=== PATIENT | female | born 2000 | race American Indian/Alaskan Native ===

== ENCOUNTER 2021-04-06 12:59 | Emergency (ER) | payer SELFPAY ==
--- NOTE | 2021-04-06 13:32 | Emergency Department Report ---
ED General Adult HPI - General Chief complaint: Pain General Stated complaint: SERIES OF PAIN Time Seen by Provider: 04/06/21 13:11 Source: patient Mode of arrival: Ambulatory Limitations: No Limitations - History of Present Illness Initial comments: Patient is a 21-year-old female presents emergency with complaints of intermittent aches and pains for 2 weeks. States that she has lower abdominal cramping. States that she also intermittently gets right lower back pain. States that her pains come and go. She states that she did not have a menstrual cycle in March. She states that she does not know if she is . She states last night she noticed some mild spotting whenever she wiped. She states that she does have irregular cycles. She does not have a primary care doctor or an [facility] at this time. She denies ever having an abnormal Pap smear in the past. She denies any fever, nausea, vomiting, diarrhea, dysuria, vaginal discha rge. No allergies to medications. Severity scale (0 -10): 5 - Related Data Previous Rx's Medication Instructions Recorded Last Taken Type Naproxen 375 mg PO BID PRN #14 tablet 04/06/21 Unknown Rx cephALEXin [Keflex] 500 mg PO BID 7 Days #14 capsule 04/06/21 Unknown Rx methOCARBAMOL [Robaxin TAB] 500 mg PO BID PRN #14 tab 04/06/21 Unknown Rx Allergies Allergy/AdvReac Type Severity Reaction Status Date / Time No Known Allergies Allergy Unverified 04/06/21 13:04 ED Review of Systems ROS: Stated complaint: SERIES OF PAIN Other details as noted in HPI Comment: All other systems reviewed and negative ED Past Medical Hx - Medications Home Medications: Home Medications Medication Instructions Recorded Confirmed Last Taken Type Naproxen 375 mg PO BID PRN #14 tablet 04/06/21 Unknown Rx cephALEXin [Keflex] 500 mg PO BID 7 Days #14 capsule 04/06/21 Unknown Rx methOCARBAMOL [Robaxin TAB] 500 mg PO BID PRN #14 tab 04/06/21 Unknown Rx ED Physical Exam - General Limitations: No Limitations General appearance: alert, in no apparent distress - Head Head exam: Present: atraumatic, normocephalic - Eye Eye exam: Present: normal appearance - ENT ENT exam: Present: mucous membranes moist - Respiratory Respiratory exam: Present: normal lung sounds bilaterally. Absent: respiratory distress, wheezes, rales, rhonchi, stridor, chest wall tenderness, accessory muscle use, decreased breath sounds, prolonged expiratory - Cardiovascular Cardiovascular Exam: Present: regular rate, normal rhythm, normal heart sounds. Absent: systolic murmur, diastolic murmur, rubs, gallop - GI/Abdominal GI/Abdominal exam: Present: soft, normal bowel sounds. Absent: distended, tenderness, guarding, rebound, rigid - Back Exam Back exam: Present: normal inspection, full ROM, paraspinal tenderness (right sided lumbar paraspinal muscular ttp, no midline c-spine, t-spine or l-spine ttp, no step offs, no deformities). Absent: vertebral tenderness - Neurological Exam Neurological exam: Present: alert, oriented X3, normal gait. Absent: motor sensory deficit - Psychiatric Psychiatric exam: Present: normal affect, normal mood - Skin Skin exam: Present: warm, dry, intact ED Course Vital Signs 04/06/21 04/06/21 13:07 18:09 Temperature 98.4 F 98.9 F Pulse Rate 101 H 103 H Respiratory 20 20 Rate Blood Pressure 130/75 126/68 [Right] O2 Sat by Pulse 97 100 Oximetry ED Medical Decision Making - Medical Decision Making Patient is a 21-year-old female presents emergency with complaints of intermittent aches and pains for 2 weeks. States that she has lower abdominal cramping. States that she also intermittently gets right lower back pain. States that her pains come and go. She states that she did not have a menstrual cycle in March. She states that she does not know if she is . She states last night she noticed some mild spotting whenever she wiped. She states that she does have irregular cycles. She does not have a primary care doctor or an [facility] at this time. She denies ever having an abnormal Pap smear in the past. She denies any fever, nausea, vomiting, diarrhea, dysuria, vaginal discharge. No allergies to medications. Vitals are stable. On exam no abdominal tenderness palpation, no guarding, no rebound, no rigidity, normal bowel sounds, no peritoneal signs, right lumbar paraspinal tenderness palpation, no step-offs, no deformities, no focal neuro deficits, ambulatory thought difficulty. UA shows evidence of UTI. Urine is negative. Patient given prescription for medication. Advised patient Please take medication as prescribed. Increase your water intake. Follow-up with a primary care doctor. Follow-up with [facility]. Return to emergency room for any new or worsening symptoms. Critical care attestation.: If time is entered above; I have spent that time in minutes in the direct care of this critically ill patient, excluding procedure time. ED Disposition Clinical Impression: UTI (urinary tract infection) Qualifiers: Urinary tract infection type: acute cystitis Hematuria presence: without hematuria Qualified Code(s): N30.00 - Acute cystitis without hematuria Abdominal pain Qualifiers: Abdominal location: lower abdomen, unspecified Qualified Code(s): R10.30 - Lower abdominal pain, unspecified Low back pain Qualifiers: Chronicity: acute Back pain laterality: right Sciatica presence: without sciatica Qualified Code(s): M54.50 - Low back pain, unspecified Disposition: HOME / SELF CARE / HOMELESS Is pt being admited?: No Does the pt Need Aspirin: No Condition: Stable Instructions: Urinary Tract Infection, Adult Additional Instructions: Please take medication as prescribed. Increase your water intake. Follow-up with a primary care doctor. Follow-up with [facility]. Return to emergency room for any new or worsening symptoms. Prescriptions: cephALEXin [Keflex] 500 mg PO BID 7 Days #14 capsule Naproxen 375 mg PO BID PRN #14 tablet PRN Reason: pain methOCARBAMOL [Robaxin TAB] 500 mg PO BID PRN #14 tab PRN Reason: muscle spasm/pain Referrals: PRIMARY CARE [Primary Care Provider] - 3-5 Days [facility] [Provider Group] - 3-5 Days [facility] [Provider Group] - 3-5 Days Time of Disposition: 16:08 Print Language: [place]
[2021-04-06 16:01] LABS: Bacteria,Urine 2+ /HPF (Negative); Bilirubin,Urine NEG (Negative); Blood,Urine LG (Negative); Color,Urine Yellow (Yellow); Mucus,Urine FEW /HPF; Protein,Urine <15 mg/dL mg/dL (Negative); Urobilinogen,Urine < 2.0 mg/dL (<2.0)
[2021-04-06 16:05] LABS: HCG Qualitative,Urine Negative (Negative)
[2021-04-06 18:10] VITALS: BP 126/68
== END 2021-04-06 18:10 | disposition home or self-care (01) ==
LOC: ED 12:59
DX: N30.00 Acute cystitis without hematuria (principal); M54.59 Other low back pain; Z79.899 Other long term (current) drug therapy
CPT/HCPCS: 81001; 81025; 99283

== ENCOUNTER 2022-01-08 22:11 | Emergency (ER) | payer SELFPAY ==
[2022-01-08 22:17] VITALS: BP 142/60
[2022-01-08 23:28] LABS: Basophils % (Auto) 0.3 % (0.0-1.8); Eosinophils # (Auto) 0.1 K/mm3 (0.0-0.4); Eosinophils % (Auto) 1.2 % (0.0-4.3); Hematocrit 40.6 % (30.3-42.9); Hemoglobin 13.6 gm/dl (10.1-14.3); Lymphocytes # (Auto) 4.3 K/mm3 (1.2-5.4); Lymphocytes % (Auto) 40.2 % (13.4-35.0); Mean Corpuscular HGB Conc 33 % (30-34); Mean Corpuscular Volume 83 fl (79-97); Monocytes # (Auto) 0.8 K/mm3 (0.0-0.8); Platelet Count 257 K/mm3 (140-440); Red Blood Count 4.87 M/mm3 (3.65-5.03); Red Cell Distribution Width 12.6 % (13.2-15.2)
[2022-01-08 23:52] LABS: Alanine Aminotransferase 14 units/L (7-56); Albumin 4.2 g/dL (3.9-5); Blood Urea Nitrogen 9 mg/dL (7-17); Calcium 9.1 mg/dL (8.4-10.2); Hemolysis Index 7
[2022-01-08 23:55] LABS: BUN/Creatinine Ratio 13
== END 2022-01-09 02:17 | disposition left against medical advice (07) ==
LOC: ED 22:11
DX: M54.9 Dorsalgia, unspecified (principal); Z53.21 Procedure and treatment not carried out due to patient leaving prior to being seen by health care provider
CPT/HCPCS: 36415; 80053; 84703; 85025